=== PATIENT | female | born 1940 | race Two or more races ===

== ENCOUNTER 2018-12-01 11:29 | Outpatient (CLI) | payer OTHER | END 2018-12-01 11:47 | disposition home or self-care (01) | LOC: RAD 11:29 | DX: M54.2 Cervicalgia (principal); M25.512 Pain in left shoulder ==

== ENCOUNTER 2018-12-04 12:24 | Outpatient (CLI) | payer OTHER | END 2018-12-04 14:41 | disposition home or self-care (01) | LOC: MRI 12:24 | DX: M25.512 Pain in left shoulder (principal); M75.102 Unspecified rotator cuff tear or rupture of left shoulder, not specified as traumatic | CPT/HCPCS: 73221 ==

== ENCOUNTER 2018-12-21 09:28 | Outpatient (CLI) | payer OTHER | END 2018-12-21 09:40 | disposition home or self-care (01) | LOC: LAB 09:28 | DX: E11.9 Type 2 diabetes mellitus without complications (principal); E03.8 Other specified hypothyroidism; I10 Essential (primary) hypertension; E78.2 Mixed hyperlipidemia; Z12.11 Encounter for screening for malignant neoplasm of colon; K92.1 Melena ==

== ENCOUNTER 2019-06-19 11:20 | Outpatient (CLI) | payer OTHER | END 2019-06-19 11:24 | disposition home or self-care (01) | LOC: RAD 11:20 | DX: M16.12 Unilateral primary osteoarthritis, left hip (principal) ==

== ENCOUNTER 2021-12-31 14:37 | Outpatient (CLI) | payer OTHER | END 2021-12-31 14:54 | disposition home or self-care (01) | LOC: LAB 14:37 | PROVIDERS: ATTEND Internal Medicine Cardiovascular Disease | DX: J11.1 Influenza due to unidentified influenza virus with other respiratory manifestations (principal); D64.0 Hereditary sideroblastic anemia; Z20.822 Contact with and (suspected) exposure to COVID-19 ==

== ENCOUNTER 2022-01-22 14:35 | Outpatient (CLI) | payer OTHER, BC | END 2022-01-22 14:42 | disposition home or self-care (01) | LOC: RAD 14:35 | PROVIDERS: ATTEND Internal Medicine Cardiovascular Disease | DX: J44.9 Chronic obstructive pulmonary disease, unspecified (principal) ==

== ENCOUNTER 2022-01-24 20:25 | Emergency (ER) | payer OTHER ==
[~2022-01-24] VITALS: Ht 149.9 cm; Wt 63.5 kg
[2022-01-24] MEDS ORDERED: SYNTHROID50 MCG PO (20:39)
[2022-01-24] MEDS ORDERED: COZAAR25 MG PO (20:39)
[2022-01-24] MEDS ORDERED: MUPIROCIN15 GM TOP (20:52)
== END 2022-01-24 20:58 | disposition home or self-care (01) ==
LOC: ER 20:25
DX: S80.212A Abrasion, left knee, initial encounter (principal); W18.39XA Other fall on same level, initial encounter; Y93.9 Activity, unspecified; Y92.89 Other specified places as the place of occurrence of the external cause; Y99.9 Unspecified external cause status; I10 Essential (primary) hypertension

== ENCOUNTER 2022-01-31 16:21 | Emergency (ER) | payer OTHER ==
[~2022-01-31] VITALS: Ht 149.9 cm; Wt 63.5 kg
[~2022-01-31 16:21] MED LIST: COZAAR25 MG PO; MUPIROCIN15 GM TOP; SYNTHROID50 MCG PO
== END 2022-01-31 19:30 | disposition home or self-care (01) ==
LOC: ER 16:21
DX: S70.312A Abrasion, left thigh, initial encounter (principal); W19.XXXA Unspecified fall, initial encounter

== ENCOUNTER → 2023-06-13 | Outpatient (CLI) | payer OTHER | END | disposition home or self-care (01) | LOC: RAD 11:17 | DX: S90.121A Contusion of right lesser toe(s) without damage to nail, initial encounter (principal) ==